=== PATIENT | female | born 1995 | race Caucasian/White ===

== ENCOUNTER 2017-02-21 00:13 | Emergency (ER) | payer OTHER ==
[~2017-02-21] VITALS: Ht 177.8 cm; Wt 74.8 kg
--- OUTSIDE RECORDS SUMMARY | 2017-02-21 00:19 | XMS REPORT | Continuity of Care Document ---
Author Author [facility] Organization [facility] Address Unknown Phone Unavailable Allergies Active Description Code Type Severity Reaction Onset Reported/Identified Relationship to Patient Clinical Status Yes No Known Allergies [id number] Drug Allergy Unknown N/A 07/11/2015 Medications Problems Date Dx Coded Attending Type Code Diagnosis Diagnosed By 07/12/2015 LUCIO STUART DO Ot R10.11 RIGHT UPPER QUADRANT PAIN 09/06/2015 LUCIO STUART DO Ot R10.11 RIGHT UPPER QUADRANT PAIN Procedures Results Encounters ACCT No. Visit Date/Time Discharge Status Pt. Type Provider Facility Loc./Unit Complaint [id number] 07/11/2015 09:55:00 2015 23:59:59 CLS Outpatient LUCIO STUART DO [facility] CARD
--- NOTE | 2017-02-21 01:22 | ED EENT ---
History of Present Illness General Chief Complaint: Eye Problems Stated Complaint: VISION ISSUES Nursing Triage Note: patient reports having peripheral vision loss in R eye, 30 minutes prior to arrival. patient reports that vision has improved but now has a headache Source: patient History of Present Illness Time seen by provider: 00:45 Initial Comments PT ARRIVES VIA POV FROM HOME STATES SHE GOT HOME FROM WORK THIS EVENING ( WORKS AT [employer] ), TOOK A SHOWER AND AN HOUR AGO, WAS USING HER PHONE AND BEGAN TO HAVE VISION LOSS--STATES THERE WAS A NEZ PERCE ON HER PHONE THAT SHE COULD NOT SEE 15 MINUTES LATER, THER NEZ PERCE WAS BIGGER 15 MINUTES AFTER THAT, SHE COULD NOT SEE ANYTHING ON HER RIGHT SIDE--STATES IT APPEARED TO BE ONLY HER RIGHT EYE THAT WAS AFFECTED. STATES AFTER VISION CHANGES BEGAN, SHE BEGAN TO HAVE A HEADACHE--INITIALLY WAS IN FRONTAL AREA, AND NOW IS LOCATED BEHIND HER LEFT EYE. NO APPARENT VISION CHANGES WITH LEFT EYE. PT STATES NOW IT FEELS LIKE A SINUS HEADACHE BEHIND HER LEFT EYE HAS HAD COLD SYMPTOMS X [address] KILGORE ON Wednesday02/18/17 FOR THIS PROBLEM AND WAS PRESCRIBED A Z-PACK. WAS TAKING DAYQUIL AND NYQUIL PRIOR TO WEDNESDAY, BUT HAS NOT TAKEN ANY OVER THE COUNTER MEDICATIONS SINCE SHE WAS STARTED ON ANTIBIOTICS THINKS COLD SYMPTOMS ARE IMPROVING. NO FEVER NO NECK PAIN NO DIZZINESS NO NAUSEA/VOMITING NO PARESTHESIAS OR MOTOR DEFICITS NO HISTORY OF SIMILAR OCCASIONALLY GETS HEADACHES, BUT HAS NEVER HAD VISION CHANGES WITH HEADACHES. WEARS GLASSES OR CONTACTS. CURRENTLY HAS ON GLASSES HAD EYE EXAM 2 MONTHS AGO, AND CONTACT PRESCRIPTION WAS CHANGED, BUT DID NOT CHANGE HER GLASSES DUE TO FINANCES. PCP: DR. KILGORE [employer] INSTALLER: DR. BHATT Allergies and Home Medications Allergies Coded Allergies: No Known Allergies (Unverified Allergy, Unknown, 07/11/15) Home Medications Loratadine/Pseudoephedrine 1 Each Tab.er.12h, 1 EACH PO BID, #30 Prescribed by: LORIN WHITE on 02/21/17 0219 Review of Systems Constitutional: no symptoms reported Eyes: See HPI Ears: No Symptoms Reported Nose: see HPI, congestion Mouth: no symptoms reported Throat: no symptoms reported Respiratory: no symptoms reported Cardiovascular: no symptoms reported Gastrointestinal: no symptoms reported : No (LMP UNKNOWN--DEPO PROVERA INJECTIONS--LAST ONE WAS 2 WEEKS AGO) Musculoskeletal: no symptoms reported Skin: no symptoms reported Neurological: See HPI, Headache, Denies Numbness, Denies Paresthesia, Denies Pre-Existing Deficit, Denies Seizure, Denies Tingling, Denies Weakness Hematologic/Lymphatic: No Symptoms Reported Immunological/Allergic: no symptoms reported Past Fufbjxe-Wcqhdx-Ybltxu Hx Patient Social History Alcohol Use: Denies Use Recreational Drug Use: No Smoking Status: Never a Smoker Recent Foreign Travel: No Contact w/Someone Who Travel: No Recent Infectious Disease Expo: No Surgeries History of Surgeries: Yes (KIDNEY STONE REMOVAL; WISDOM TEETH REMOVAL) Surgeries: Gallbladder, Renal Respiratory History of Respiratory Disorde: No Cardiovascular History of Cardiac Disorders: No Neurological History of Neurological Disord: No Reproductive System : No (DEPO PROVERA --LAST INJECTION 02/03/17) Female Reproductive Disorders: Denies Genitourinary History of Genitourinary Disor: Yes Genitourinary Disorders: Kidney Stones Gastrointestinal History of Gastrointestinal Di: No Musculoskeletal History of Musculoskeletal Dis: No Endocrine History of Endocrine Disorders: No HEENT History of HEENT Disorders: Yes (GLASSES) Cancer History of Cancer: No Psychosocial History of Psychiatric Problem: No Integumentary History of Skin or Integumenta: No Blood Transfusions History of Blood Disorders: No Physical Exam Vital Signs Vital Sign - Last 12Hours 02/21/17 00:30 Temp 98.2 Pulse 83 Resp 18 B/P (MAP) 150/96 (114) Pulse Ox 98 General Appearance: WD/WN, no apparent distress Eyes: bilateral eye normal inspection, bilateral eye PERRL, bilateral eye EOMI Ears: bilateral ear auricle normal, bilateral ear canal normal, bilateral ear TM normal Nose: No active bleeding, No discharge, No dried blood, No foreign body, No sinus tenderness, other (NASAL CONGESTION, CLEAR POST NASAL DRAINAGE) Mouth/Throat: pharynx normal, No dental tenderness Neck: non-tender, full range of motion, supple, normal inspection, No carotid bruit, No lymphadenopathy (R), No lymphadenopathy (L) Cardiovascular: normal peripheral pulses, regular rate, rhythm, no edema, no JVD, no murmur Respiratory: normal breath sounds, no respiratory distress, no accessory muscle use Gastrointestinal: normal bowel sounds, non tender, soft, no organomegaly 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, no motor/sensory deficits, alert, normal mood/affect, oriented x 3, No abnormal cerebellar tests, No aphasia Skin: normal color, warm/dry, No rash Progress/Results/Core Measures Results/Orders My Orders Orders - LORIN WHITE DO Ct Head/Sinuses Wo (02/21/17 00:54) Vital Signs/I&O Vital Sign - Last 12Hours 02/21/17 02/21/17 00:30 02:30 Temp 98.2 98.2 Pulse 83 83 Resp 18 18 B/P (MAP) 150/96 (114) Pulse Ox 98 98 Blood Pressure Mean: 114 Progress Note : Progress Note HEADACHE IS IMPROVING DURING ER STAY PT DECLINES ANY MEDICATION FOR HEADACHE Diagnostic Imaging Comments CT HEAD/SINUSES--NO ACUTE INTRACRANIAL ABNORMALITY. LEFT MAXILLARY SINUSITIS, WITH LEFT OSTIOMEATAL UNIT IS OBSTRUCTED AND RIGHT OSTIOMEATAL UNTIL IS NARROWED. PER [facility] VIA FAX @ [phone] Reviewed: Reviewed by Me Departure Impression Impression: Primary Impression: Transient vision disturbance of right eye Additional Impressions: Headache Left maxillary sinusitis Disposition: HOME, SELF-CARE Condition: Stable Departure-Patient Inst. Referrals: LORIN KILGORE MD (PCP/Family) Primary Care Physician Patient Instructions: Headache, Adult (DC), Loratadine and Pseudoephedrine, Migraine Headache (DC), Sinusitis, Adult (DC) Add. Discharge Instructions: CONTINUE ZITHROMAX PRESCRIBED OVER THE COUNTER CLARITIN D AND FLONASE/NASACORT FOR SINUSES TYLENOL AND MOTRIN NEEDED FOR PAIN FOLLOW UP WITH YOUR EYE DR ON WEDNESDAY FOLLOW UP WITH DR. KILGORE NEXT WEEK FOR FURTHER CARE RETURN TO ER IF SYMPTOMS WORSEN/RETURN All discharge instructions reviewed with patient and/or family. Voiced understanding. Scripts Loratadine/Pseudoephedrine (Claritin-D 12 Hour Tablet) 1 Each Tab.er.12h 1 EACH PO BID for Congestion, #30 TAB Prov: LORIN WHITE DO 02/21/17 LORIN WHITE DO Feb 21, 2017 01:22
[2017-02-21] MEDS ORDERED: LORA1TAB59 PO (02:19)
[2017-02-21 02:30] VITALS: BP 150/96
--- NOTE | 2017-02-21 07:51 | Diagnostic Imaging Report ---
PROCEDURE: CT head without contrast and CT sinuses with contrast. TECHNIQUE: Routine noncontrast CT images were obtained through the head and sinuses. Coronal reformats of the sinuses were also performed and reviewed. INDICATION: Headache, blurry vision. CT brain and CT sinuses, 02/21/2017. CT BRAIN: FINDINGS: Multiple axial images of the brain without contrast. There is no evidence for acute hemorrhage or infarct. There is no mass, mass effect, midline shift or hydrocephalus. The paranasal sinuses and mastoid air cells demonstrate no acute abnormality. IMPRESSION: No acute intracranial process. CT SINUSES: There is mild mucosal thickening within the left maxillary sinus. Left ostiomeatal complex appears likely obstructed with possible narrowing on the right. Remaining visualized sinuses are clear. There are no air-fluid levels. No acute fractures. The orbits are bilaterally intact and unremarkable in appearance. IMPRESSION: 1. No acute process. Mild chronic appearing sinus disease as described. Findings agree with the preliminary report. Dictated by: Dictated on workstation # [id number]
== END 2017-02-21 02:29 | disposition home or self-care (01) ==
LOC: EDUNIT# 00:13 → ER 00:15
DX: H53.8 Other visual disturbances (principal); J32.0 Chronic maxillary sinusitis; R51 Headache; Z87.442 Personal history of urinary calculi
CPT/HCPCS: 70450; 70486; 99281